=== PATIENT | male | born 1950 | race Hispanic/Latino ===

== ENCOUNTER 2020-03-10 06:22 | Day surgery (SDC) | payer MEDICARE, OTHER ==
[2020-03-10] MEDS ORDERED: SODIUM CHLORIDE 0.9% 1000 ML 1,000 ML IV SCH (07:15)
--- NOTE | 2020-03-10 07:29 | Anesthesia Consultation ---
Anesthesia Consult and Med Hx Date of service: 03/10/20 - Airway Anesthetic Teeth Evaluation: Good ROM Head & Neck: Adequate Mental/Hyoid Distance: Adequate Mallampati Class: Class II Intubation Access Assessment: Probably Good - Pre-Operative Health Status ASA Pre-Surgery Classification: ASA3 Proposed Anesthetic Plan: MAC - Pulmonary Hx Respiratory Symptoms: Yes (had mild Covid-19 in December 2019) Hx Pneumonia: Yes (had 3 PE, last one 2017) - Cardiovascular System Hx Hypertension: Yes Hx Cardia Arrhythmia: Yes (atrial fibrilation) - Central Nervous System Hx Neuromuscular Disorder: Yes (non Hodgkin's lymphoma, in remission for 50 years)
--- NOTE | 2020-03-10 07:30 | Anesthesia Day of Surgery ---
Anesthesia Day of Surgery - Day of Surgery Patient Examined: Yes Patient H&P Reviewed: Yes Patient is NPO: Yes Beta Blockers: Yes Cardiac Clearance: Yes (EF 40-45% from 03/03/20)
[2020-03-10] MEDS ORDERED: propofoL 200 MG/20 ML VIAL IV ONE ×2 (07:34)
[2020-03-10 07:55] LABS: INR 1.12 (0.87-1.13)
[2020-03-10 07:56] LABS: Partial Thromboplastin Time 27.7 Sec. (24.2-36.6)
[2020-03-10] MEDS ORDERED: LIDOCAINE MPF (2%) 20 MG/1 ML VIAL 5 ML ONE (08:30)
--- NOTE | 2020-03-10 08:33 | Post Anesthesia Evaluation ---
- Post Anesthesia Evaluation Patient Participated: Yes Airway Patent: Yes Stable Respiratory Function: Yes Nausea/Vomiting: No Temp > 96.8F: Yes Pain Manageable: Yes Adequeate Hydration: Yes Anesthesia Complications: No
--- NOTE | 2020-03-10 09:01 | XRay Report ---
CHEST 1 VIEW INDICATION: S/P Cardioversion. COMPARISON: None FINDINGS: SUPPORT DEVICES: Wires project over the mid mediastinum and there are tiny surgical clips in the left upper quadrant. HEART: Within normal limits. LUNGS/PLEURA: There is a nodular density measuring approximately 2.5 cm in the left apex. The lungs a re otherwise clear. No pneumothorax. ADDITIONAL FINDINGS: None. IMPRESSION: 1. Left apical nodular density as outlined above with otherwise clear lungs. Correlate with any prior imaging and/or consider follow-up nonemergent CT chest for further evaluation. Signer Name: Kenneth Henson MD Signed: 03/10/2020 8:57 AM Workstation Name: [id number]
[2020-03-10 10:19] VITALS: BP 123/84
--- NOTE | 2020-03-10 19:55 | Procedure Note ---
ELECTRICAL CARDIOVERSION NOTE REASON FOR ELECTRICAL CARDIOVERSION: Atrial fibrillation. DESCRIPTION OF PROCEDURE: Informed consent was first obtained for electrical cardioversion. With the patient in a supine position, electrode pads were applied to the anterior and posterior chest wall. With continuous electrocardiographic monitoring, the patient was given intravenous propofol by the anesthesiologist. After adequate sedation, a 200 joule synchronized shock was applied over the electrode pads with conversion to sinus bradycardia. Initially, the patient was bradycardic with heart rate in the 30s to 40s. Subsequently, his heart rate increased to the 50s in sinus bradycardia. Initial post-cardioversion ECG also showed sinus bradycardia with brief atrial run. On the monitor, the patient settled into sinus bradycardia in a stable fashion prior to discharge. It took a few minutes before the patient fully aroused from anesthesia. The procedure appears to have been well tolerated without any complications. JOB# [id number] OFELIA/GABRIEL
== END 2020-03-10 11:00 | disposition home or self-care (01) ==
LOC: CATHLABREC 06:22
PROVIDERS: ATTEND Internal Medicine Cardiovascular Disease
DX: I48.91 Unspecified atrial fibrillation (principal); I11.0 Hypertensive heart disease with heart failure; I50.9 Heart failure, unspecified; E78.00 Pure hypercholesterolemia, unspecified; F32.9 Major depressive disorder, single episode, unspecified; Z87.01 Personal history of pneumonia (recurrent); Z98.890 Other specified postprocedural states; Z88.0 Allergy status to penicillin; Z79.899 Other long term (current) drug therapy; Z87.891 Personal history of nicotine dependence; Z86.711 Personal history of pulmonary embolism; Z85.89 Personal history of malignant neoplasm of other organs and systems
CPT/HCPCS: 36415; 71045; 85610; 85730; 92960; 93005; J2704; J7030